=== PATIENT | male | born 1975 | race Hispanic/Latino ===

== ENCOUNTER 2016-11-23 11:29 | Day surgery (SDC) | payer OTHER ==
[2016-11-19 13:42] LABS: HEMATOCRIT 44.6 % (42.0-52.0); HEMOGLOBIN 15.5 g/dL (14.0-18.0); MCH 32.1 PG (27-31); MCHC 34.8 g/dL (33-37); MCV 92.3 FL (81-99); MPV 9.3 FL (7.4-10.4); RBC 4.83 XMIL (4.7-6.1)
[2016-11-19 13:59] LABS: AGAP 12; BUN 5 mg/dL (8-22); CALCIUM 9.2 mg/dL (8.8-10.2); CHLORIDE 96 mmol/L (98-107); COSMO 272; POTASSIUM 3.8 mmol/L (3.5-5.1); SODIUM 138 mmol/L (136-145); TCO2 30 mmol/L (25-35)
[2016-11-19 14:28] LABS: INR 1.05; PROTIME 10.7 Seconds (9.2-11.7); PTT 26.9 Seconds (22.0-36.0)
--- NOTE | 2016-11-22 13:09 | HISTORY AND PHYSICAL ---
HISTORY OF PRESENT ILLNESS: This is a 41-year-old male with a longstanding history of BPH, prostatitis, recurrent epididymitis, history of urethral stricture. He also has symptomatic hypogonadism for which he is on testosterone injections. He has had longstanding hesitancy, weak stream, sensation of incomplete emptying. He has been treated with multiple rounds of antibiotics in the past as well as Flomax 0.4 mg twice a day. His prostate is not large enough to warrant finasteride. He desires better improvement in symptoms. He had cystoscopy on 11/10/2016 which did not show any stricture recurrence, but did show significant bilobar prostatic hypertrophy. He was educated at length on his young age, as well as the problem of retrograde ejaculation and inability to have children spontaneously. He voiced understanding and wants to proceed. PAST MEDICAL HISTORY: 1. BPH. 2. Prostatitis. 3. Hypertension. 4. Seizures. MEDICATIONS: Dilantin, phenobarbital, Flomax, metoprolol, doxazosin, and Bactrim. ALLERGIES: No known drug allergies. FAMILY HISTORY: Negative for malignancies. SOCIAL HISTORY: Denies tobacco. Occasional alcohol use. Denies illicit drugs. PHYSICAL EXAMINATION: GENERAL: No acute distress. HEENT: Normocephalic, atraumatic. CARDIOVASCULAR: Regular rate and rhythm. ABDOMEN: Nontender, nondistended. : Normal external male genitalia. Normal meatus. Normal phallus. Testes descended bilaterally, atrophic. PERTINENT IMAGES: None. ASSESSMENT: This is a 41-year-old male with significant lower urinary tract symptoms, enlarged prostate for his age, history of prostatitis and epididymitis, who had tried medical therapy and desires further intervention. He was counseled at length on the risks of TURP including, but not limited to, bleeding, infection, injury to adjacent structures, small risk of urinary incontinence, risk of worsening erectile function, delayed complications such as scar tissue, need for additional interventions. Once again, we discussed retrograde ejaculation and infertility. He voiced understanding and wants to proceed. PLAN: Bipolar transurethral resection of prostate.
[2016-11-23] MEDS ORDERED: REGLAN ONE (11:51)
[2016-11-23] MEDS ORDERED: LR 1,000 ML ONE ×2 (11:51→16:21)
[2016-11-23] MEDS ORDERED: KEFZOL 2 GM/D5W 50 ML ONE (11:51)
[2016-11-23] MEDS ORDERED: PEPCID ONE (11:51)
[2016-11-23] MEDS ORDERED: VERSED ONE (16:08)
[2016-11-23] MEDS ORDERED: DIPRIVAN 1% ONE ×2 (16:08)
[2016-11-23] MEDS ORDERED: FENTANYL ONE ×2 (16:08→16:11)
[2016-11-23] MEDS ORDERED: XYLOCAINE-MPF 2% ONE (16:21)
[2016-11-23] MEDS ORDERED: ROBINUL ONE (16:21)
[2016-11-23] MEDS ORDERED: ZOFRAN ONE (16:21)
[2016-11-23] MEDS ORDERED: NS 1,000 ML ONE (16:27)
[2016-11-23] MEDS ORDERED: SODIUM CHLORIDE 0.9% INJ PRN (18:04)
[2016-11-23] MEDS ORDERED: BENADRYL IV PRN (18:04)
[2016-11-23] MEDS ORDERED: BENADRYL LIQUID PO PRN (18:04)
[2016-11-23] MEDS ORDERED: B & O 15A SUPP PR PRN (18:04)
[2016-11-23] MEDS ORDERED: DITROPAN PO PRN (18:04)
[2016-11-23] MEDS ORDERED: MORPHINE IV PRN (18:04)
[2016-11-23] MEDS ORDERED: PHENERGAN IV PRN (18:04)
[2016-11-23] MEDS ORDERED: NORCO-7.5 PO PRN (18:04)
[2016-11-23] MEDS ORDERED: TYLENOL PO PRN (18:04)
[2016-11-23] MEDS ORDERED: PHENERGAN PR PRN (18:04)
[2016-11-23] MEDS ORDERED: ZOFRAN IV PRN (18:04)
[2016-11-23] MEDS ORDERED: PHENERGAN PO PRN (18:04)
[2016-11-23] MEDS ORDERED: LABETALOL IV PRN (18:04)
[2016-11-23] MEDS: D5 1/2 NS 1,000 ML IV SCH (18:45)
--- NOTE | 2016-11-23 18:50 | OPERATIVE NOTE ---
PROCEDURE DATE: 11/23/2016 PREOPERATIVE DIAGNOSES: 1. Chronic prostatitis. 2. Benign prostatic hypertrophy. 3. Irritative voiding. POSTOPERATIVE DIAGNOSES: 1. Chronic prostatitis. 2. Benign prostatic hypertrophy. 3. Irritative voiding. PROCEDURES PERFORMED: Bipolar transurethral resection of the prostate with the button. SURGEON: Arik Shaffer MD INDICATIONS: This is a 41-year-old male, who has had recurrent prostatitis and significant lower urinary tract symptoms. He had tried multiple medications. Of note, he is on testosterone therapy for symptomatic hypogonadism. He underwent cystoscopy in the office, which revealed significant bilobar hypertrophy, despite average size of the prostate. He elected to proceed with TURP. He was counseled on the risks, especially that of retrograde ejaculation and infertility. FINDINGS: Adequate hemostasis at the conclusion of the case. PROCEDURE IN DETAIL: After obtaining informed consent, the patient was brought to the operating room. Perioperative antibiotics and laryngeal mask airway anesthesia was administered. He was placed in lithotomy position and prepped and draped in sterile fashion. A 21-[place] rigid cystoscope was used to gain access to the bladder. We confirmed bilobar prostatic hypertrophy. He did not have a significant median lobe. He had no evidence of mucosal lesions, excessive trabeculations, or diverticula noted. I was able to visualize bilateral ureteral orifices with clear efflux. We then removed the cystoscope and inserted a 25-[place] rigid resectoscope. The bipolar gyrus button was used to resect the prostatic adenoma from the level of the bladder neck down to the verumontanum at the depth of the capsule. We did that at 6 o'clock and subsequently in clockwise and counterclockwise fashions. We then emptied the bladder and repeat examination revealed no evidence of significant bleeding. I rechecked the bilateral ureteral orifices and they were not involved with the resection. The resectoscope was then removed. An 18-[place], 3- way Restrepo catheter was introduced with return of light pink urine without clots. He was connected to continuous bladder irrigation. He was extubated and taken to the PACU for further recovery. ESTIMATED BLOOD LOSS: 30 mL. COMPLICATIONS: None. DISPOSITION: To PACU and subsequently the floor with Restrepo catheter to continuous bladder irrigation.
[2016-11-23] MEDS ORDERED: PERIDEX MT SCH (21:00)
[2016-11-23] MEDS ORDERED: DILANTIN PO SCH (21:00)
[2016-11-23] MEDS ORDERED: PHENOBARBITAL PO SCH (21:00)
[2016-11-23] MEDS: KEFZOL 1 GM/D5W 50 ML IV SCH (22:59)
[2016-11-23] MEDS: COLACE PO SCH (23:00)
[2016-11-24] MEDS: KEFZOL 1 GM/D5W 50 ML IV SCH (06:18)
[2016-11-24] MEDS: D5 1/2 NS 1,000 ML IV SCH (06:20)
[2016-11-24 06:45] LABS: HEMATOCRIT 41.5 % (42.0-52.0); HEMOGLOBIN 13.9 g/dL (14.0-18.0); MCH 31.7 PG (27-31); MCHC 33.5 g/dL (33-37); MCV 94.7 FL (81-99); MPV 9.6 FL (7.4-10.4); RBC 4.38 XMIL (4.7-6.1)
[2016-11-24 07:05] LABS: AGAP 12; BUN 5 mg/dL (8-22); CALCIUM 8.2 mg/dL (8.8-10.2); CHLORIDE 100 mmol/L (98-107); COSMO 278; POTASSIUM 3.2 mmol/L (3.5-5.1); SODIUM 140 mmol/L (136-145); TCO2 28 mmol/L (25-35)
[2016-11-24 08:17] VITALS: BP 123/86
[2016-11-24] MEDS ORDERED: KLOR-CON PO SCH (09:00)
[2016-11-24] MEDS: COLACE PO SCH (09:09)
== END 2016-11-24 12:23 | disposition home or self-care (01) ==
LOC: PAT 11:29 → 4N 15:06 → UNDOADMOB 15:06 → PAT 11-24 12:23 → UNDODISOB 11-24 12:23
PROVIDERS: ATTEND Urology
DX: N40.1 Benign prostatic hyperplasia with lower urinary tract symptoms (principal); N13.8 Other obstructive and reflux uropathy; N41.9 Inflammatory disease of prostate, unspecified; I10 Essential (primary) hypertension; R56.9 Unspecified convulsions; N45.1 Epididymitis; E29.1 Testicular hypofunction; R39.11 Hesitancy of micturition; R39.12 Poor urinary stream; R33.9 Retention of urine, unspecified; Z79.899 Other long term (current) drug therapy; Z89.411 Acquired absence of right great toe
CPT/HCPCS: 80048; 85027; 85610; 85730; 94799; J0690; J2250; J2405; J3010; J7030; J7120